=== PATIENT | female | born 1940 | race African-American/Black ===

== ENCOUNTER 2019-05-23 18:05 | Inpatient (IN) ==
[2019-05-23 20:02] LABS: Basophils % 0.3 % (0.0-0.8); Eosinophils # 0.1 10*3/uL (0.0-0.87); Eosinophils % 1.3 % (0.00-10.9); Hematocrit 26.3 VOL% (35.7-47.0); Hemoglobin 7.7 GM/DL (12.0-16.0); Immature Granulocytes % 0.4 %; Immature Granulocytes Absolute 0.03 #; Lymphocytes # 2.4 10*3/uL (1.4-4.0); Lymphocytes % 35.6 % (21.3-54.2); Mean Corpuscular HGB Conc 29.3 GM/DL (32-36); Mean Corpuscular Volume 95.6 FL (87-102); Mean Platelet Volume 11.4 FL (9.6-12.0); Monocytes % 10.4 % (1.7-12.7); Platelet Count 197 T/CUMM (130-400); Red Blood Count 2.75 MC/CUMM (3.8-5.5); Red Cell Distribution Width 14.8 % (9.3-17.3); White Blood Count 6.8 T/CUMM (4-12)
[2019-05-23 20:14] LABS: PT Patient Result 22.1 SECS
[2019-05-23 20:21] LABS: Albumin 3.3 G/DL (3.4-5.0); Bilirubin,Total 0.4 MG/DL (0.2-1.0); Calcium 8.7 MG/DL (8.5-10.1); Osmolality,Calculated 301.3 MOS/KG (273-304)
[2019-05-24] MEDS ORDERED: PANTOPRAZOLE INJ 80 MG in SODIUM CHLORIDE 0.9% 100 ML IV ONE (00:05)
[2019-05-24] MEDS ORDERED: MORPHINE 4 MG/1 ML VIAL IV PRN (00:34)
[2019-05-24] MEDS ORDERED: NICOTINE 21 MG/24 HR PATCH TRANSDERM PRN (00:34)
[2019-05-24] MEDS ORDERED: ONDANSETRON 4 MG/2 ML VIAL IV PRN (00:34)
[2019-05-24] MEDS: PANTOPRAZOLE INJ 200 MG in SODIUM CHLORIDE 0.9% 250 ML IV SCH ×2 (02:02→04:59)
[2019-05-24] MEDS: SODIUM CHLORIDE 0.9% 1,000 ML IV SCH ×3 (02:02→14:19)
[2019-05-24] MEDS ORDERED: PHYTONADIONE INJ 5 MG in SODIUM CHLORIDE 0.9% 50 ML IV ONE (02:23)
[2019-05-24] MEDS ORDERED: SODIUM CHLORIDE 0.9% 1,000 ML IV PRN (03:57)
[2019-05-24 05:26] LABS: Basophils % 0.3 % (0.0-0.8); Eosinophils # 0.1 10*3/uL (0.0-0.87); Eosinophils % 1.2 % (0.00-10.9); Hematocrit 24.4 VOL% (35.7-47.0); Hemoglobin 7.3 GM/DL (12.0-16.0); Immature Granulocytes % 0.5 %; Immature Granulocytes Absolute 0.03 #; Lymphocytes # 1.8 10*3/uL (1.4-4.0); Lymphocytes % 30.8 % (21.3-54.2); Mean Corpuscular HGB Conc 29.9 GM/DL (32-36); Mean Corpuscular Volume 96.1 FL (87-102); Mean Platelet Volume 12.1 FL (9.6-12.0); Monocytes % 10.2 % (1.7-12.7); Platelet Count 190 T/CUMM (130-400); Red Blood Count 2.54 MC/CUMM (3.8-5.5); Red Cell Distribution Width 14.8 % (9.3-17.3)
[2019-05-24 10:35] LABS: Apearance,Urine CLEAR (Clear); Bacteria,Urine Occasional /HPF (Few); Bilirubin,Urine Negative (Negative); Blood, Urine Negative (Negative); Glucose,Urine (UA) 150 mg/dL (Negative); Ketones,Urine Negative (Negative); Mucus,Urine Occasional /LPF (Occasional); Nitrite,Urine Negative (Negative); Protein,Urine Negative; RBC,Urine 1 /HPF (0-4); Squamous Epithelial Cell,Urine Occasional /HPF (0-10); Transitional Epi Cells,Urine Occasional /HPF (<1); Urine Color Straw (Yellow); Urine Specific Gravity 1.012 (1.001-1.035); Urine Urobilinogen < 2.0 EU/DL (0.2-1.0); WBC,Urine 21 /HPF (0-6)
[2019-05-24] MEDS ORDERED: DEXTROSE 50% 25 GM/50 ML VIAL IV PRN (11:52)
[2019-05-24] MEDS ORDERED: GLUCAGON 1 MG VIAL IM PRN (11:52)
[2019-05-24] MEDS ORDERED: DEXTROSE 10% 250 ML IV PRN (12:11)
[2019-05-24] MEDS: INSULIN REGULAR 100 UNIT/ML SUBCUT SCH ×2 (13:20→18:10)
[2019-05-24 14:54] LABS: Hematocrit 29.7 VOL% (35.7-47.0)
[2019-05-24 14:55] LABS: Hemoglobin 9.1 GM/DL (12.0-16.0)
[2019-05-24] MEDS ORDERED: cloNIDine 0.1 MG TABLET PO PRN (18:03)
[2019-05-24] MEDS ORDERED: hydrALAZINE 20 MG/1 ML VIAL IV PRN (18:04)
[2019-05-24] MEDS: ATORVASTATIN 10 MG TABLET PO SCH (22:08)
[2019-05-25] MEDS: INSULIN REGULAR 100 UNIT/ML SUBCUT SCH ×4 (00:04→18:32)
[2019-05-25 06:49] LABS: Bilirubin,Total 0.9 MG/DL (0.2-1.0); Calcium 8.8 MG/DL (8.5-10.1); Osmolality,Calculated 294.4 MOS/KG (273-304); Total Protein 7.7 G/DL (6.4-8.3)
[2019-05-25] MEDS ORDERED: LACTATED RINGERS 1,000 ML IV SCH (08:00)
[2019-05-25 08:11] LABS: INR 1.1
[2019-05-25] MEDS ORDERED: PROPOFOL 200 MG/20 ML VIAL IV ONE (09:00)
[2019-05-25] MEDS ORDERED: LIDOCAINE 2% 5 ML VIAL ONE (09:00)
[2019-05-25 09:08] LABS: Basophils % 0.4 % (0.0-0.8); Eosinophils # 0.1 10*3/uL (0.0-0.87); Eosinophils % 1.1 % (0.00-10.9); Hemoglobin 9.7 GM/DL (12.0-16.0); Immature Granulocytes % 0.3 %; Immature Granulocytes Absolute 0.02 #; Lymphocytes # 1.7 10*3/uL (1.4-4.0); Lymphocytes % 22.9 % (21.3-54.2); Mean Corpuscular HGB Conc 30.3 GM/DL (32-36); Mean Corpuscular Volume 93.6 FL (87-102); Mean Platelet Volume 11.7 FL (9.6-12.0); Monocytes % 8.4 % (1.7-12.7); Neutrophils % 66.9 % (38.7-73.9); Platelet Count 209 T/CUMM (130-400); Red Blood Count 3.42 MC/CUMM (3.8-5.5); Red Cell Distribution Width 15.6 % (9.3-17.3); White Blood Count 7.4 T/CUMM (4-12)
[2019-05-25] MEDS: SODIUM CHLORIDE 0.9% 1,000 ML IV SCH ×2 (09:09→17:47)
[2019-05-25 09:14] LABS: INR 1.1; PT Patient Result 12.4 SECS
[2019-05-25] MEDS: cefTRIAXone 1,000 MG in SYRINGE 1 EACH IV SCH (09:36)
[2019-05-25] MEDS: CARVEDILOL 3.125 MG TABLET PO SCH ×2 (14:15→17:45)
[2019-05-25] MEDS: PANTOPRAZOLE 40 MG TABLET PO SCH (14:28)
[2019-05-25] MEDS: FERROUS SULFATE 325 MG TABLET PO SCH (14:28)
[2019-05-25] MEDS: PANTOPRAZOLE INJ 200 MG in SODIUM CHLORIDE 0.9% 250 ML IV SCH (14:37)
[2019-05-25] MEDS ORDERED: BISACODYL 5 MG TABLET PO ONE (16:00)
[2019-05-25] MEDS ORDERED: POLYETHYLENE GLYCOL POWDER 255 GM BOTTLE PO ONE (18:00)
[2019-05-25] MEDS: ATORVASTATIN 10 MG TABLET PO SCH (21:40)
[2019-05-26] MEDS: INSULIN REGULAR 100 UNIT/ML SUBCUT SCH ×4 (00:30→18:55)
[2019-05-26 04:56] LABS: Basophils % 0.3 % (0.0-0.8); Eosinophils # 0.1 10*3/uL (0.0-0.87); Eosinophils % 1.6 % (0.00-10.9); Hematocrit 28.7 VOL% (35.7-47.0); Hemoglobin 8.5 GM/DL (12.0-16.0); Immature Granulocytes % 0.4 %; Immature Granulocytes Absolute 0.03 #; Lymphocytes % 26.9 % (21.3-54.2); Mean Corpuscular HGB Conc 29.6 GM/DL (32-36); Mean Corpuscular Volume 95.3 FL (87-102); Mean Platelet Volume 11.5 FL (9.6-12.0); Neutrophils % 59.8 % (38.7-73.9); Platelet Count 183 T/CUMM (130-400); Red Blood Count 3.01 MC/CUMM (3.8-5.5); Red Cell Distribution Width 15.6 % (9.3-17.3); White Blood Count 7.3 T/CUMM (4-12)
[2019-05-26] MEDS: SODIUM CHLORIDE 0.9% 1,000 ML IV SCH ×2 (05:19→18:38)
[2019-05-26 05:22] LABS: Bilirubin,Total 0.7 MG/DL (0.2-1.0); Calcium 8.7 MG/DL (8.5-10.1); Osmolality,Calculated 296.4 MOS/KG (273-304); Total Protein 7.1 G/DL (6.4-8.3)
[2019-05-26 05:48] LABS: Risk Ratio 2.18; VLDL CHOLESTEROL 17.6 MG/DL
[2019-05-26] MEDS ORDERED: MAGNESIUM CITRATE 300 ML BOTTLE PO ONE ×2 (06:00→18:00)
[2019-05-26] MEDS ORDERED: LIDOCAINE 2% 5 ML VIAL ONE (08:00)
[2019-05-26] MEDS ORDERED: PROPOFOL 200 MG/20 ML VIAL IV ONE (08:00)
[2019-05-26] MEDS ORDERED: NON-FORMULARY MEDICATION (Omeprazole 40 MG) PO SCH (09:00)
[2019-05-26] MEDS ORDERED: NON-FORMULARY MEDICATION (Linagliptin [Tradjenta] 5 MG) PO SCH (09:00)
[2019-05-26] MEDS: cefTRIAXone 1,000 MG in SYRINGE 1 EACH IV SCH (09:36)
[2019-05-26] MEDS: CARVEDILOL 3.125 MG TABLET PO SCH ×2 (14:30→17:42)
[2019-05-26] MEDS: MONTELUKAST 10 MG TABLET PO SCH (14:30)
[2019-05-26] MEDS: CHOLECALCIFEROL 1,000 UNIT TABLET PO SCH (14:30)
[2019-05-26] MEDS: OLMESARTAN 20 MG TABLET PO SCH (14:30)
[2019-05-26] MEDS: FERROUS SULFATE 325 MG TABLET PO SCH (14:30)
[2019-05-26] MEDS: PIOGLITAZONE 15 MG TABLET PO SCH (14:30)
[2019-05-26] MEDS: PANTOPRAZOLE 40 MG TABLET PO SCH (14:30)
[2019-05-26] MEDS: FUROSEMIDE 40 MG TABLET PO SCH ×2 (14:30→17:42)
[2019-05-26] MEDS: SODIUM BICARBONATE 650 MG TABLET PO SCH ×2 (14:30→20:57)
[2019-05-26] MEDS ORDERED: FUROSEMIDE 20 MG/2 ML VIAL ONE (14:35)
[2019-05-26 19:50] LABS: Apearance,Urine Slightly Hazy (Clear); Bacteria,Urine Occasional /HPF (Few); Bilirubin,Urine Negative (Negative); Blood, Urine Negative (Negative); Glucose,Urine (UA) Negative (Negative); Ketones,Urine 5 mg/dL (Negative); Mucus,Urine Occasional /LPF (Occasional); Nitrite,Urine Negative (Negative); Protein,Urine 30 MG/DL; Urine Color Yellow (Yellow); Urine Specific Gravity 1.016 (1.001-1.035); Urine Urobilinogen < 2.0 EU/DL (0.2-1.0); WBC,Urine 2 /HPF (0-6)
[2019-05-26] MEDS: ATORVASTATIN 10 MG TABLET PO SCH (20:57)
[2019-05-26] MEDS: DOXAZOSIN 4 MG TABLET PO SCH (20:58)
[2019-05-26] MEDS ORDERED: INSULIN DETEMIR 100 UNIT/ML SUBCUT SCH (21:00)
[2019-05-27] MEDS: INSULIN REGULAR 100 UNIT/ML SUBCUT SCH ×5 (01:31→23:15)
[2019-05-27] MEDS: SODIUM CHLORIDE 0.9% 1,000 ML IV SCH (01:31)
[2019-05-27 04:46] LABS: Basophils % 0.3 % (0.0-0.8); Eosinophils # 0.1 10*3/uL (0.0-0.87); Eosinophils % 1.7 % (0.00-10.9); Hematocrit 29.9 VOL% (35.7-47.0); Hemoglobin 8.9 GM/DL (12.0-16.0); Immature Granulocytes % 0.4 %; Immature Granulocytes Absolute 0.03 #; Lymphocytes # 1.5 10*3/uL (1.4-4.0); Lymphocytes % 22.4 % (21.3-54.2); Mean Corpuscular HGB Conc 29.8 GM/DL (32-36); Mean Corpuscular Volume 96.1 FL (87-102); Mean Platelet Volume 12.7 FL (9.6-12.0); Monocytes % 8.9 % (1.7-12.7); Neutrophils % 66.3 % (38.7-73.9); Platelet Count 165 T/CUMM (130-400); Red Blood Count 3.11 MC/CUMM (3.8-5.5); Red Cell Distribution Width 15.5 % (9.3-17.3); White Blood Count 6.9 T/CUMM (4-12)
[2019-05-27 05:18] LABS: Albumin 2.9 G/DL (3.4-5.0); Bilirubin,Total 1.2 MG/DL (0.2-1.0); Calcium 8.7 MG/DL (8.5-10.1); Osmolality,Calculated 294.8 MOS/KG (273-304); Total Protein 7.2 G/DL (6.4-8.3)
[2019-05-27] MEDS: CARVEDILOL 3.125 MG TABLET PO SCH ×2 (09:29→17:34)
[2019-05-27] MEDS: FUROSEMIDE 40 MG TABLET PO SCH ×2 (09:29→17:34)
[2019-05-27] MEDS: cefTRIAXone 1,000 MG in SYRINGE 1 EACH IV SCH (09:31)
[2019-05-27] MEDS: OLMESARTAN 20 MG TABLET PO SCH (09:34)
[2019-05-27] MEDS: PIOGLITAZONE 15 MG TABLET PO SCH (09:34)
[2019-05-27] MEDS: FERROUS SULFATE 325 MG TABLET PO SCH (09:34)
[2019-05-27] MEDS: PANTOPRAZOLE 40 MG TABLET PO SCH (09:35)
[2019-05-27] MEDS: CHOLECALCIFEROL 1,000 UNIT TABLET PO SCH (09:35)
[2019-05-27] MEDS: SODIUM BICARBONATE 650 MG TABLET PO SCH ×2 (09:35→21:16)
[2019-05-27] MEDS: MONTELUKAST 10 MG TABLET PO SCH (09:35)
[2019-05-27] MEDS ORDERED: SODIUM CHLORIDE 0.9% 1,000 ML IV PRN (11:09)
[2019-05-27] MEDS: ENOXAPARIN 40 MG/0.4 ML SYRINGE SUBCUT SCH (13:53)
[2019-05-27] MEDS: DOXAZOSIN 4 MG TABLET PO SCH (21:16)
[2019-05-27] MEDS: ATORVASTATIN 10 MG TABLET PO SCH (21:17)
[2019-05-27] MEDS: cloNIDine 0.1 MG TABLET PO SCH (21:17)
[2019-05-28] MEDS: INSULIN REGULAR 100 UNIT/ML SUBCUT SCH ×3 (05:21→17:57)
[2019-05-28] MEDS: SODIUM CHLORIDE 0.9% 1,000 ML IV SCH ×2 (05:23→16:10)
[2019-05-28 05:28] LABS: Basophils % 0.5 % (0.0-0.8); Eosinophils # 0.1 10*3/uL (0.0-0.87); Eosinophils % 2.1 % (0.00-10.9); Hematocrit 30.9 VOL% (35.7-47.0); Hemoglobin 9.3 GM/DL (12.0-16.0); Immature Granulocytes % 0.5 %; Immature Granulocytes Absolute 0.03 #; Lymphocytes # 2.1 10*3/uL (1.4-4.0); Lymphocytes % 33.8 % (21.3-54.2); Mean Corpuscular HGB Conc 30.1 GM/DL (32-36); Mean Corpuscular Volume 95.1 FL (87-102); Mean Platelet Volume 11.3 FL (9.6-12.0); Monocytes % 10.2 % (1.7-12.7); Neutrophils % 52.9 % (38.7-73.9); Platelet Count 199 T/CUMM (130-400); Red Blood Count 3.25 MC/CUMM (3.8-5.5); White Blood Count 6.1 T/CUMM (4-12)
[2019-05-28 06:00] LABS: Bilirubin,Total 0.8 MG/DL (0.2-1.0); Calcium 8.9 MG/DL (8.5-10.1); Total Protein 7.6 G/DL (6.4-8.3)
[2019-05-28] MEDS: cefTRIAXone 1,000 MG in SYRINGE 1 EACH IV SCH (08:01)
[2019-05-28] MEDS: FERROUS SULFATE 325 MG TABLET PO SCH (08:01)
[2019-05-28] MEDS: PIOGLITAZONE 15 MG TABLET PO SCH (08:02)
[2019-05-28] MEDS: PANTOPRAZOLE 40 MG TABLET PO SCH (08:02)
[2019-05-28] MEDS: CHOLECALCIFEROL 1,000 UNIT TABLET PO SCH (08:02)
[2019-05-28] MEDS: SODIUM BICARBONATE 650 MG TABLET PO SCH ×2 (08:02→20:38)
[2019-05-28] MEDS: OLMESARTAN 20 MG TABLET PO SCH (08:02)
[2019-05-28] MEDS: FUROSEMIDE 40 MG TABLET PO SCH ×2 (08:02→16:18)
[2019-05-28] MEDS: MONTELUKAST 10 MG TABLET PO SCH (08:02)
[2019-05-28] MEDS: cloNIDine 0.1 MG TABLET PO SCH ×2 (08:02→20:38)
[2019-05-28] MEDS: CARVEDILOL 3.125 MG TABLET PO SCH ×2 (08:03→16:18)
[2019-05-28] MEDS: ENOXAPARIN 40 MG/0.4 ML SYRINGE SUBCUT SCH (11:53)
[2019-05-28] MEDS: DOXAZOSIN 4 MG TABLET PO SCH (20:38)
[2019-05-28] MEDS: ATORVASTATIN 10 MG TABLET PO SCH (20:38)
[2019-05-29] MEDS: INSULIN REGULAR 100 UNIT/ML SUBCUT SCH ×4 (00:50→17:00)
[2019-05-29 06:11] LABS: Basophils % 0.2 % (0.0-0.8); Eosinophils # 0.1 10*3/uL (0.0-0.87); Eosinophils % 2.2 % (0.00-10.9); Hematocrit 28.3 VOL% (35.7-47.0); Hemoglobin 8.6 GM/DL (12.0-16.0); Immature Granulocytes % 0.4 %; Immature Granulocytes Absolute 0.02 #; Lymphocytes # 1.7 10*3/uL (1.4-4.0); Mean Corpuscular HGB Conc 30.4 GM/DL (32-36); Mean Corpuscular Volume 94.3 FL (87-102); Monocytes % 11.9 % (1.7-12.7); Neutrophils % 52.3 % (38.7-73.9); Platelet Count 175 T/CUMM (130-400); Red Cell Distribution Width 14.9 % (9.3-17.3)
[2019-05-29 06:45] LABS: Albumin 2.8 G/DL (3.4-5.0); Bilirubin,Total 0.7 MG/DL (0.2-1.0); Calcium 8.5 MG/DL (8.5-10.1); Osmolality,Calculated 295.8 MOS/KG (273-304); Total Protein 6.8 G/DL (6.4-8.3)
[2019-05-29] MEDS: SODIUM CHLORIDE 0.9% 1,000 ML IV SCH ×2 (06:49→10:53)
[2019-05-29] MEDS: MONTELUKAST 10 MG TABLET PO SCH (08:02)
[2019-05-29] MEDS: cloNIDine 0.1 MG TABLET PO SCH ×2 (08:02→20:57)
[2019-05-29] MEDS: PANTOPRAZOLE 40 MG TABLET PO SCH (08:02)
[2019-05-29] MEDS: OLMESARTAN 20 MG TABLET PO SCH (08:02)
[2019-05-29] MEDS: FERROUS SULFATE 325 MG TABLET PO SCH (08:02)
[2019-05-29] MEDS: FUROSEMIDE 40 MG TABLET PO SCH ×2 (08:03→15:23)
[2019-05-29] MEDS: SODIUM BICARBONATE 650 MG TABLET PO SCH ×2 (08:03→20:57)
[2019-05-29] MEDS: PIOGLITAZONE 15 MG TABLET PO SCH (08:03)
[2019-05-29] MEDS: CHOLECALCIFEROL 1,000 UNIT TABLET PO SCH (08:03)
[2019-05-29] MEDS: cefTRIAXone 1,000 MG in SYRINGE 1 EACH IV SCH (08:04)
[2019-05-29] MEDS: CARVEDILOL 3.125 MG TABLET PO SCH ×2 (08:04→17:00)
[2019-05-29 18:50] LABS: Hematocrit 34.1 VOL% (35.7-47.0)
[2019-05-29 18:51] LABS: Hemoglobin 10.6 GM/DL (12.0-16.0)
[2019-05-29] MEDS: DOXAZOSIN 4 MG TABLET PO SCH (20:57)
[2019-05-29] MEDS: ATORVASTATIN 10 MG TABLET PO SCH (20:57)
[2019-05-30] MEDS: INSULIN REGULAR 100 UNIT/ML SUBCUT SCH ×4 (01:04→17:56)
[2019-05-30] MEDS ORDERED: cefTRIAXone 1,000 MG in SYRINGE 1 EACH IV ONE (06:00)
[2019-05-30 07:06] LABS: Basophils % 0.4 % (0.0-0.8); Eosinophils # 0.1 10*3/uL (0.0-0.87); Eosinophils % 1.8 % (0.00-10.9); Hematocrit 38.5 VOL% (35.7-47.0); Hemoglobin 11.9 GM/DL (12.0-16.0); Immature Granulocytes % 0.4 %; Immature Granulocytes Absolute 0.02 #; Lymphocytes # 1.8 10*3/uL (1.4-4.0); Lymphocytes % 32.7 % (21.3-54.2); Mean Corpuscular HGB Conc 30.9 GM/DL (32-36); Mean Corpuscular Volume 92.5 FL (87-102); Mean Platelet Volume 12.4 FL (9.6-12.0); Neutrophils % 54.7 % (38.7-73.9); Platelet Count 188 T/CUMM (130-400); Red Blood Count 4.16 MC/CUMM (3.8-5.5); White Blood Count 5.6 T/CUMM (4-12)
[2019-05-30 07:36] LABS: Albumin 3.2 G/DL (3.4-5.0); Bilirubin,Total 0.6 MG/DL (0.2-1.0); Calcium 9.6 MG/DL (8.5-10.1); Total Protein 8.1 G/DL (6.4-8.3)
[2019-05-30] MEDS: SODIUM CHLORIDE 0.9% 1,000 ML IV SCH ×2 (08:29→22:10)
[2019-05-30] MEDS: cloNIDine 0.1 MG TABLET PO SCH ×2 (09:08→21:42)
[2019-05-30] MEDS: OLMESARTAN 20 MG TABLET PO SCH (09:08)
[2019-05-30] MEDS: cefTRIAXone 1,000 MG in SYRINGE 1 EACH IV SCH (09:09)
[2019-05-30] MEDS: FERROUS SULFATE 325 MG TABLET PO SCH (09:10)
[2019-05-30] MEDS: PANTOPRAZOLE 40 MG TABLET PO SCH (09:10)
[2019-05-30] MEDS: CARVEDILOL 3.125 MG TABLET PO SCH ×2 (09:10→18:00)
[2019-05-30] MEDS: FUROSEMIDE 40 MG TABLET PO SCH ×2 (09:10→18:00)
[2019-05-30] MEDS: PIOGLITAZONE 15 MG TABLET PO SCH (09:10)
[2019-05-30] MEDS: MONTELUKAST 10 MG TABLET PO SCH (09:11)
[2019-05-30] MEDS: CHOLECALCIFEROL 1,000 UNIT TABLET PO SCH (09:11)
[2019-05-30] MEDS: SODIUM BICARBONATE 650 MG TABLET PO SCH ×2 (09:11→21:41)
[2019-05-30 14:00] LABS: INR 1.2; PT Patient Result 13.5 SECS (9.6-12.2)
[2019-05-30] MEDS ORDERED: fentaNYL 100 MCG/2 ML VIAL ONE (15:12)
[2019-05-30] MEDS ORDERED: ePHEDrine 50 MG/ML AMP ONE (15:13)
[2019-05-30] MEDS ORDERED: ONDANSETRON 4 MG/2 ML VIAL ONE (15:27)
[2019-05-30] MEDS ORDERED: GLYCOPYRROLATE 0.4 MG/2 ML VIAL ONE (15:27)
[2019-05-30] MEDS ORDERED: PROPOFOL 200 MG/20 ML VIAL IV ONE (15:27)
[2019-05-30] MEDS ORDERED: SEVOFLURANE 1 UNIT/15 MINUTE INH ONE (15:28)
[2019-05-30] MEDS: DOXAZOSIN 4 MG TABLET PO SCH (21:41)
[2019-05-30] MEDS: ATORVASTATIN 10 MG TABLET PO SCH (21:42)
[2019-05-31] MEDS: INSULIN REGULAR 100 UNIT/ML SUBCUT SCH ×4 (00:02→18:19)
[2019-05-31 06:39] LABS: Albumin 2.9 G/DL (3.4-5.0); Bilirubin,Total 0.7 MG/DL (0.2-1.0); Calcium 8.9 MG/DL (8.5-10.1); Total Protein 7.2 G/DL (6.4-8.3)
[2019-05-31 06:52] LABS: Basophils % 0.4 % (0.0-0.8); Eosinophils # 0.1 10*3/uL (0.0-0.87); Eosinophils % 1.6 % (0.00-10.9); Hematocrit 36.2 VOL% (35.7-47.0); Immature Granulocytes % 0.4 %; Immature Granulocytes Absolute 0.02 #; Lymphocytes # 1.5 10*3/uL (1.4-4.0); Lymphocytes % 25.7 % (21.3-54.2); Mean Corpuscular HGB Conc 30.1 GM/DL (32-36); Mean Corpuscular Volume 93.8 FL (87-102); Mean Platelet Volume 12.1 FL (9.6-12.0); Neutrophils % 60.9 % (38.7-73.9); Platelet Count 175 T/CUMM (130-400); Red Blood Count 3.86 MC/CUMM (3.8-5.5); Red Cell Distribution Width 14.9 % (9.3-17.3); White Blood Count 5.7 T/CUMM (4-12)
[2019-05-31 06:53] LABS: Hemoglobin 10.9 GM/DL (12.0-16.0)
[2019-05-31] MEDS: CHOLECALCIFEROL 1,000 UNIT TABLET PO SCH (08:56)
[2019-05-31] MEDS: SODIUM BICARBONATE 650 MG TABLET PO SCH ×2 (08:56→20:59)
[2019-05-31] MEDS: cloNIDine 0.1 MG TABLET PO SCH ×2 (08:56→20:59)
[2019-05-31] MEDS: OLMESARTAN 20 MG TABLET PO SCH (08:56)
[2019-05-31] MEDS: FERROUS SULFATE 325 MG TABLET PO SCH (08:56)
[2019-05-31] MEDS: FUROSEMIDE 40 MG TABLET PO SCH ×2 (08:56→16:20)
[2019-05-31] MEDS: PIOGLITAZONE 15 MG TABLET PO SCH (08:56)
[2019-05-31] MEDS: MONTELUKAST 10 MG TABLET PO SCH (08:56)
[2019-05-31] MEDS: PANTOPRAZOLE 40 MG TABLET PO SCH (08:56)
[2019-05-31] MEDS: CARVEDILOL 3.125 MG TABLET PO SCH ×2 (08:56→16:20)
[2019-05-31] MEDS: cefTRIAXone 1,000 MG in SYRINGE 1 EACH IV SCH (08:57)
[2019-05-31] MEDS ORDERED: PHENOL 1.4% THROAT SPRAY 177 ML BOTTLE PO PRN (10:41)
[2019-05-31] MEDS: SODIUM CHLORIDE 0.9% 1,000 ML IV SCH (16:28)
[2019-05-31] MEDS: DOXAZOSIN 4 MG TABLET PO SCH (20:59)
[2019-06-01] MEDS: INSULIN REGULAR 100 UNIT/ML SUBCUT SCH ×3 (00:53→12:52)
[2019-06-01] MEDS: SODIUM CHLORIDE 0.9% 1,000 ML IV SCH (05:44)
[2019-06-01] MEDS: PANTOPRAZOLE 40 MG TABLET PO SCH (08:59)
[2019-06-01] MEDS: cefTRIAXone 1,000 MG in SYRINGE 1 EACH IV SCH (08:59)
[2019-06-01] MEDS: CARVEDILOL 3.125 MG TABLET PO SCH (09:00)
[2019-06-01] MEDS: FUROSEMIDE 40 MG TABLET PO SCH (09:00)
[2019-06-01] MEDS: CHOLECALCIFEROL 1,000 UNIT TABLET PO SCH (09:00)
[2019-06-01] MEDS: MONTELUKAST 10 MG TABLET PO SCH (09:00)
[2019-06-01] MEDS: OLMESARTAN 20 MG TABLET PO SCH (09:00)
[2019-06-01] MEDS: PIOGLITAZONE 15 MG TABLET PO SCH (09:00)
[2019-06-01] MEDS: SODIUM BICARBONATE 650 MG TABLET PO SCH (09:00)
[2019-06-01] MEDS: FERROUS SULFATE 325 MG TABLET PO SCH (09:00)
[2019-06-01] MEDS: cloNIDine 0.1 MG TABLET PO SCH (09:01)
[2019-06-01 11:51] LABS: Protein C Activity Plasma 76 % (70 - 150)
[2019-06-01 12:33] VITALS: BP 152/58
[2019-06-02 14:27] LABS: Protein S Activity Plasma 83 % (65 - 160)
[2019-06-02 16:51] LABS: F5DNA Reviewed By SEE COMMENTS; Factor V Leiden (R506Q) Mutati Negative (Negative); PTNT Reviewed By SEE COMMENTS
[2019-06-03 13:11] LABS: DRVVT Screen Ratio 0.9 ratio (0.0 - 1.1); INR 1.4
[2019-06-08 14:45] LABS: PT Mix 1:1 (Mayo Reflex) 12.4 sec; Thrombin Time (Bovine), P 22 sec (15 - 23)
== END 2019-06-01 14:34 | disposition home or self-care (01) | DRG 813 ==
LOC: N.ED 18:05 → N.EDINP 18:05 → N.5E 05-24 01:23 → SUATTDRO 05-24 13:47
PROVIDERS: ADMIT Family Medicine; ATTEND Internal Medicine

== ENCOUNTER 2020-03-25 01:10 | Inpatient (IN) ==
[2020-03-25] MEDS ORDERED: ONDANSETRON 4 MG/2 ML VIAL IV PRN (04:10)
[2020-03-25] MEDS ORDERED: GLUCAGON 1 MG VIAL IM PRN (04:10)
[2020-03-25] MEDS ORDERED: MORPHINE 4 MG/1 ML VIAL IV PRN (04:10)
[2020-03-25] MEDS ORDERED: ALBUTEROL/IPRATROPIUM 3 ML NEB RESP TX PRN (04:10)
[2020-03-25] MEDS ORDERED: ACETAMINOPHEN 325 MG TABLET PO PRN (04:10)
[2020-03-25] MEDS ORDERED: DEXTROSE 10% 250 ML BAG IV PRN (04:10)
[2020-03-25] MEDS ORDERED: hydrALAZINE 20 MG/1 ML VIAL IV PRN (04:16)
[2020-03-25] MEDS ORDERED: ALBUTEROL 2.5 MG/3 ML NEB RESP TX PRN (04:20)
[2020-03-25 04:38] LABS: Basophils % 0.5 % (0.0-0.8); Eosinophils # 0.2 10*3/uL (0.0-0.87); Eosinophils % 2.3 % (0.00-10.9); Hematocrit 30.7 VOL% (35.7-47.0); Hemoglobin 9.1 GM/DL (12.0-16.0); Immature Granulocytes % 0.4 %; Immature Granulocytes Absolute 0.03 #; Lymphocytes # 2.3 10*3/uL (1.4-4.0); Lymphocytes % 28.4 % (21.3-54.2); Mean Corpuscular HGB Conc 29.6 GM/DL (32-36); Mean Corpuscular Volume 95.6 FL (87-102); Mean Platelet Volume 11.9 FL (9.6-12.0); Neutrophils % 58.4 % (38.7-73.9); Platelet Count 243 T/CUMM (130-400); Red Blood Count 3.21 MC/CUMM (3.8-5.5); Red Cell Distribution Width 14.4 % (9.3-17.3); White Blood Count 7.9 T/CUMM (4-12)
[2020-03-25 05:02] LABS: Albumin 3.5 G/DL (3.4-5.0); Bilirubin,Total 0.8 MG/DL (0.2-1.0); Calcium 9.1 MG/DL (8.5-10.1); Risk Ratio 2.57; Thyroid Stimulating Hormone 2.63 uIU/ml (0.358-3.74)
[2020-03-25] MEDS ORDERED: NITROGLYCERIN SL 0.4 MG TABLET SL PRN (05:04)
[2020-03-25] MEDS ORDERED: INSULIN LISPRO 100 UNIT/ML SUBCUT SCH (07:30)
[2020-03-25] MEDS: sitaGLIPtin 25 MG TABLET PO SCH (08:29)
[2020-03-25] MEDS: DOCUSATE SODIUM 100 MG CAPSULE PO PRN (08:29)
[2020-03-25] MEDS: CHOLECALCIFEROL 1,000 UNIT TABLET PO SCH (08:29)
[2020-03-25] MEDS: APIXABAN 5 MG TABLET PO SCH ×2 (08:30→21:13)
[2020-03-25] MEDS: DOXAZOSIN 4 MG TABLET PO SCH (08:30)
[2020-03-25] MEDS: OLMESARTAN 20 MG TABLET PO SCH (08:30)
[2020-03-25] MEDS: FERROUS SULFATE 325 MG TABLET PO SCH (08:30)
[2020-03-25] MEDS: MONTELUKAST 10 MG TABLET PO SCH (08:31)
[2020-03-25] MEDS: INSULIN LISPRO 100 UNIT/ML SUBCUT SCH ×4 (08:31→21:12)
[2020-03-25] MEDS: SODIUM BICARBONATE 650 MG TABLET PO SCH ×2 (08:31→21:12)
[2020-03-25] MEDS: PANTOPRAZOLE 40 MG TABLET PO SCH (08:31)
[2020-03-25] MEDS: FUROSEMIDE 40 MG/4 ML VIAL IV SCH ×2 (08:32→16:42)
[2020-03-25] MEDS: Fluticasone Furoate-Vilanterol [Breo Ellipta] INH SCH (08:36)
[2020-03-25] MEDS ORDERED: POTASSIUM CHLORIDE 20 MEQ TABLET PO ONE (08:44)
[2020-03-25] MEDS: ASCORBIC ACID 500 MG TABLET PO SCH ×2 (09:14→21:12)
[2020-03-25] MEDS: carvediloL 3.125 MG TABLET PO SCH ×2 (09:14→21:13)
[2020-03-25] MEDS: amLODIPine 5 MG TABLET PO SCH (09:14)
[2020-03-25] MEDS: INSULIN GLARGINE 100 UNIT/ML SUBCUT SCH (21:11)
[2020-03-25] MEDS: ATORVASTATIN 10 MG TABLET PO SCH (21:12)
[2020-03-26 05:40] LABS: Basophils % 0.7 % (0.0-0.8); Eosinophils # 0.3 10*3/uL (0.0-0.87); Eosinophils % 4.3 % (0.00-10.9); Hematocrit 28.8 VOL% (35.7-47.0); Hemoglobin 8.5 GM/DL (12.0-16.0); Immature Granulocytes % 0.2 %; Immature Granulocytes Absolute 0.01 #; Lymphocytes # 2.2 10*3/uL (1.4-4.0); Lymphocytes % 36.6 % (21.3-54.2); Mean Corpuscular HGB Conc 29.5 GM/DL (32-36); Mean Platelet Volume 11.5 FL (9.6-12.0); Monocytes % 12.6 % (1.7-12.7); Neutrophils % 45.6 % (38.7-73.9); Platelet Count 195 T/CUMM (130-400); Red Cell Distribution Width 14.6 % (9.3-17.3); White Blood Count 5.9 T/CUMM (4-12)
[2020-03-26 06:02] LABS: Calcium 9.3 MG/DL (8.5-10.1); Osmolality,Calculated 283.5 MOS/KG (273-304)
[2020-03-26 06:04] LABS: Calcium 9.3 MG/DL (8.5-10.1); Osmolality,Calculated 282.5 MOS/KG (273-304)
[2020-03-26] MEDS: INSULIN LISPRO 100 UNIT/ML SUBCUT SCH ×4 (08:59→20:45)
[2020-03-26] MEDS: SODIUM BICARBONATE 650 MG TABLET PO SCH ×2 (09:39→20:37)
[2020-03-26] MEDS: DOXAZOSIN 4 MG TABLET PO SCH (09:39)
[2020-03-26] MEDS: MONTELUKAST 10 MG TABLET PO SCH (09:40)
[2020-03-26] MEDS: CHOLECALCIFEROL 1,000 UNIT TABLET PO SCH (09:40)
[2020-03-26] MEDS: ASCORBIC ACID 500 MG TABLET PO SCH ×2 (09:40→20:37)
[2020-03-26] MEDS: sitaGLIPtin 25 MG TABLET PO SCH (09:40)
[2020-03-26] MEDS: APIXABAN 5 MG TABLET PO SCH ×2 (09:41→20:37)
[2020-03-26] MEDS: OLMESARTAN 20 MG TABLET PO SCH ×2 (09:41→20:37)
[2020-03-26] MEDS: DOCUSATE SODIUM 100 MG CAPSULE PO PRN ×2 (09:41→20:37)
[2020-03-26] MEDS: FERROUS SULFATE 325 MG TABLET PO SCH (09:41)
[2020-03-26] MEDS: amLODIPine 5 MG TABLET PO SCH (09:41)
[2020-03-26] MEDS: PANTOPRAZOLE 40 MG TABLET PO SCH (09:41)
[2020-03-26] MEDS: carvediloL 3.125 MG TABLET PO SCH (09:41)
[2020-03-26] MEDS: Fluticasone Furoate-Vilanterol [Breo Ellipta] INH SCH (09:42)
[2020-03-26] MEDS: FUROSEMIDE 40 MG/4 ML VIAL IV SCH ×2 (09:42→16:43)
[2020-03-26] MEDS ORDERED: amLODIPine 2.5 MG TABLET PO SCH (14:22)
[2020-03-26] MEDS: hydrALAZINE 25 MG TABLET PO SCH ×2 (16:43→20:37)
[2020-03-26] MEDS: INSULIN GLARGINE 100 UNIT/ML SUBCUT SCH (20:37)
[2020-03-26] MEDS: ATORVASTATIN 10 MG TABLET PO SCH (20:37)
[2020-03-27 03:04] LABS: Basophils % 0.4 % (0.0-0.8); Eosinophils # 0.3 10*3/uL (0.0-0.87); Eosinophils % 3.7 % (0.00-10.9); Hematocrit 29.5 VOL% (35.7-47.0); Hemoglobin 9.1 GM/DL (12.0-16.0); Immature Granulocytes % 0.4 %; Immature Granulocytes Absolute 0.03 #; Lymphocytes # 2.5 10*3/uL (1.4-4.0); Lymphocytes % 32.8 % (21.3-54.2); Mean Corpuscular HGB Conc 30.8 GM/DL (32-36); Mean Corpuscular Volume 93.1 FL (87-102); Mean Platelet Volume 11.7 FL (9.6-12.0); Monocytes % 11.1 % (1.7-12.7); Neutrophils % 51.6 % (38.7-73.9); Platelet Count 207 T/CUMM (130-400); Red Blood Count 3.17 MC/CUMM (3.8-5.5); Red Cell Distribution Width 14.6 % (9.3-17.3); White Blood Count 7.6 T/CUMM (4-12)
[2020-03-27 03:20] LABS: Calcium 9.1 MG/DL (8.5-10.1); Osmolality,Calculated 287.7 MOS/KG (273-304)
[2020-03-27 08:17] VITALS: BP 163/79
[2020-03-27] MEDS: INSULIN LISPRO 100 UNIT/ML SUBCUT SCH (08:40)
[2020-03-27] MEDS: sitaGLIPtin 25 MG TABLET PO SCH (08:40)
[2020-03-27] MEDS: DOXAZOSIN 4 MG TABLET PO SCH (08:41)
[2020-03-27] MEDS: hydrALAZINE 25 MG TABLET PO SCH (08:41)
[2020-03-27] MEDS: CHOLECALCIFEROL 1,000 UNIT TABLET PO SCH (08:41)
[2020-03-27] MEDS: MONTELUKAST 10 MG TABLET PO SCH (08:41)
[2020-03-27] MEDS: ASCORBIC ACID 500 MG TABLET PO SCH (08:41)
[2020-03-27] MEDS: PANTOPRAZOLE 40 MG TABLET PO SCH (08:41)
[2020-03-27] MEDS: APIXABAN 5 MG TABLET PO SCH (08:41)
[2020-03-27] MEDS: FERROUS SULFATE 325 MG TABLET PO SCH (08:41)
[2020-03-27] MEDS: SODIUM BICARBONATE 650 MG TABLET PO SCH (08:41)
[2020-03-27] MEDS: Fluticasone Furoate-Vilanterol [Breo Ellipta] INH SCH (08:42)
[2020-03-27] MEDS: FUROSEMIDE 40 MG/4 ML VIAL IV SCH (08:42)
[2020-03-27] MEDS: OLMESARTAN 20 MG TABLET PO SCH (08:42)
== END 2020-03-27 12:24 | disposition home or self-care (01) | DRG 291 ==
LOC: SUATTDRO 02:42 → N.TELES 02:42
PROVIDERS: ADMIT Internal Medicine; ATTEND Family Medicine

== ENCOUNTER 2020-09-23 21:03 | Inpatient (IN) ==
[2020-09-23] MEDS ORDERED: ACETAMINOPHEN 500 MG TABLET PO STA (23:17)
[2020-09-23 23:37] LABS: Hematocrit 30.4 VOL% (35.7-47.0); Hemoglobin 9.4 GM/DL (12.0-16.0); Immature Granulocytes % 0.3 %; Immature Granulocytes Absolute 0.02 #; Lymphocytes # 1.1 10*3/uL (1.4-4.0); Lymphocytes % 17.9 % (21.3-54.2); Mean Corpuscular HGB Conc 30.9 GM/DL (32-36); Mean Corpuscular Volume 90.2 FL (87-102); Mean Platelet Volume 11.7 FL (9.6-12.0); Monocytes % 8.9 % (1.7-12.7); Neutrophils % 72.9 % (38.7-73.9); Platelet Count 158 T/CUMM (130-400); Red Blood Count 3.37 MC/CUMM (3.8-5.5); Red Cell Distribution Width 14.1 % (9.3-17.3); White Blood Count 5.9 T/CUMM (4-12)
[2020-09-23 23:45] LABS: Albumin 3.2 G/DL (3.4-5.0); Bilirubin,Total 0.6 MG/DL (0.2-1.0); Osmolality,Calculated 286.1 MOS/KG (273-304)
[2020-09-24 00:08] LABS: Ferritin 195.9 ng/ml (8-252)
[2020-09-24] MEDS ORDERED: AZITHROMYCIN INJ 500 MG in SODIUM CHLORIDE 0.9% 250 ML IV STA (00:59)
[2020-09-24] MEDS ORDERED: hydrALAZINE 20 MG/1 ML VIAL IV PRN (02:47)
[2020-09-24] MEDS ORDERED: DEXAMETHASONE 10 MG/1 ML VIAL IV ONE (02:47)
[2020-09-24] MEDS ORDERED: ONDANSETRON 4 MG/2 ML VIAL IV PRN (02:47)
[2020-09-24] MEDS ORDERED: diphenhydrAMINE CAP 25 MG CAPSULE PO PRN (02:47)
[2020-09-24] MEDS ORDERED: DEXTROSE 50% 25 GM/50 ML VIAL IV PRN (02:47)
[2020-09-24] MEDS ORDERED: GLUCAGON 1 MG VIAL IM PRN (02:47)
[2020-09-24] MEDS ORDERED: NICOTINE 21 MG/24 HR PATCH TRANSDERM PRN (02:47)
[2020-09-24] MEDS ORDERED: hydrALAZINE 20 MG/1 ML VIAL IV STA (03:14)
[2020-09-24] MEDS: cefTRIAXone 1,000 MG in SYRINGE 1 EACH IV SCH (04:15)
[2020-09-24 06:40] LABS: Bacteria,Urine Occasional /HPF (Few); Bilirubin,Urine Negative (Negative); Blood, Urine Negative (Negative); Glucose,Urine (UA) Negative (Negative); Ketones,Urine Negative (Negative); Mucus,Urine Occasional /LPF (Occasional); Nitrite,Urine Negative (Negative); Protein,Urine 100 MG/DL; RBC,Urine 2 /HPF (0-4); Squamous Epithelial Cell,Urine Occasional /HPF (0-10); Urine Appearance CLEAR (Clear); Urine Color Yellow (Yellow); Urine Urobilinogen < 2.0 EU/DL (0.2-1.0)
[2020-09-24] MEDS ORDERED: NON-FORMULARY MEDICATION (Albuterol Sulfate [Ventolin Hfa] 90 MCG/PUFF HFA aerosol inhaler INH PRN (07:51)
[2020-09-24] MEDS ORDERED: SODIUM CHLORIDE 0.9% 1,000 ML IV SCH (08:00)
[2020-09-24] MEDS ORDERED: FAMOTIDINE 20 MG TABLET PO SCH (09:00)
[2020-09-24] MEDS ORDERED: ASCORBIC ACID 500 MG TABLET PO SCH ×2 (09:00)
[2020-09-24] MEDS: ZINC SULFATE 220 MG CAPSULE PO SCH (09:09)
[2020-09-24] MEDS: METOPROLOL SUCCINATE XL 25 MG TABLET PO SCH (09:09)
[2020-09-24] MEDS: ISOSORBIDE MONONITRATE 30 MG TABLET PO SCH (09:09)
[2020-09-24] MEDS: CETIRIZINE 10 MG TABLET PO SCH (09:09)
[2020-09-24] MEDS: DOXAZOSIN 4 MG TABLET PO SCH (09:09)
[2020-09-24] MEDS: APIXABAN 2.5 MG TABLET PO SCH ×2 (09:09→21:36)
[2020-09-24] MEDS: FAMOTIDINE 20 MG TABLET PO SCH (09:09)
[2020-09-24] MEDS: CHOLECALCIFEROL 1,000 UNIT TABLET PO SCH (09:09)
[2020-09-24] MEDS: MONTELUKAST 10 MG TABLET PO SCH (09:09)
[2020-09-24] MEDS: ASCORBIC ACID 500 MG TABLET PO SCH ×2 (09:10→21:36)
[2020-09-24] MEDS: FERROUS SULFATE 325 MG TABLET PO SCH (09:10)
[2020-09-24] MEDS: INSULIN REGULAR 100 UNIT/ML SUBCUT SCH ×4 (09:50→21:35)
[2020-09-24] MEDS ORDERED: DEXAMETHASONE 4 MG/1 ML VIAL IV SCH (15:00)
[2020-09-24] MEDS: INSULIN GLARGINE 100 UNIT/ML SUBCUT SCH (21:35)
[2020-09-24] MEDS: ATORVASTATIN 10 MG TABLET PO SCH (21:38)
[2020-09-25] MEDS: cefTRIAXone 1,000 MG in SYRINGE 1 EACH IV SCH (03:49)
[2020-09-25] MEDS: AZITHROMYCIN INJ 500 MG in SODIUM CHLORIDE 0.9% 250 ML IV SCH (03:57)
[2020-09-25] MEDS: INSULIN REGULAR 100 UNIT/ML SUBCUT SCH ×4 (08:52→22:16)
[2020-09-25] MEDS: MONTELUKAST 10 MG TABLET PO SCH (08:53)
[2020-09-25] MEDS: APIXABAN 2.5 MG TABLET PO SCH ×2 (08:53→22:15)
[2020-09-25] MEDS: FERROUS SULFATE 325 MG TABLET PO SCH (08:53)
[2020-09-25] MEDS: DOXAZOSIN 4 MG TABLET PO SCH (08:53)
[2020-09-25] MEDS: CHOLECALCIFEROL 1,000 UNIT TABLET PO SCH (08:53)
[2020-09-25] MEDS: FAMOTIDINE 20 MG TABLET PO SCH (08:53)
[2020-09-25] MEDS: METOPROLOL SUCCINATE XL 25 MG TABLET PO SCH (08:54)
[2020-09-25] MEDS: CETIRIZINE 10 MG TABLET PO SCH (08:54)
[2020-09-25] MEDS: ASCORBIC ACID 500 MG TABLET PO SCH ×2 (08:54→22:15)
[2020-09-25] MEDS: ISOSORBIDE MONONITRATE 30 MG TABLET PO SCH (08:54)
[2020-09-25] MEDS: DEXAMETHASONE 4 MG/1 ML VIAL IV SCH (08:58)
[2020-09-25 09:13] LABS: Albumin 2.1 G/DL (3.4-5.0); Bilirubin,Total 0.4 MG/DL (0.2-1.0); Calcium 8.1 MG/DL (8.5-10.1); Ferritin 272.1 ng/ml (8-252); Osmolality,Calculated 286.7 MOS/KG (273-304)
[2020-09-25] MEDS ORDERED: REMDESIVIR 200 MG in SODIUM CHLORIDE 0.9% 210 ML IV ONE (12:00)
[2020-09-25] MEDS ORDERED: SODIUM CHLORIDE 0.9% 1,000 ML IV PRN (14:13)
[2020-09-25] MEDS: ATORVASTATIN 10 MG TABLET PO SCH (22:15)
[2020-09-25] MEDS: INSULIN GLARGINE 100 UNIT/ML SUBCUT SCH (22:35)
[2020-09-26] MEDS: AZITHROMYCIN INJ 500 MG in SODIUM CHLORIDE 0.9% 250 ML IV SCH (02:52)
[2020-09-26] MEDS: cefTRIAXone 1,000 MG in SYRINGE 1 EACH IV SCH (03:57)
[2020-09-26 06:47] LABS: Albumin 2.2 G/DL (3.4-5.0); Bilirubin,Total 0.6 MG/DL (0.2-1.0); Calcium 8.2 MG/DL (8.5-10.1); Ferritin 219.2 ng/ml (8-252); Osmolality,Calculated 288.4 MOS/KG (273-304)
[2020-09-26] MEDS: INSULIN REGULAR 100 UNIT/ML SUBCUT SCH ×4 (08:24→20:06)
[2020-09-26] MEDS: REMDESIVIR 100 MG in SODIUM CHLORIDE 0.9% 100 ML IV SCH (09:36)
[2020-09-26] MEDS: DEXAMETHASONE 4 MG/1 ML VIAL IV SCH (09:36)
[2020-09-26] MEDS: ZINC SULFATE 220 MG CAPSULE PO SCH (09:36)
[2020-09-26] MEDS: ISOSORBIDE MONONITRATE 30 MG TABLET PO SCH (09:37)
[2020-09-26] MEDS: DOXAZOSIN 4 MG TABLET PO SCH (09:37)
[2020-09-26] MEDS: FAMOTIDINE 20 MG TABLET PO SCH (09:37)
[2020-09-26] MEDS: CHOLECALCIFEROL 1,000 UNIT TABLET PO SCH (09:37)
[2020-09-26] MEDS: APIXABAN 2.5 MG TABLET PO SCH ×2 (09:37→20:05)
[2020-09-26] MEDS: METOPROLOL SUCCINATE XL 25 MG TABLET PO SCH (09:37)
[2020-09-26] MEDS: FERROUS SULFATE 325 MG TABLET PO SCH (09:38)
[2020-09-26] MEDS: MONTELUKAST 10 MG TABLET PO SCH (09:38)
[2020-09-26] MEDS: ASCORBIC ACID 500 MG TABLET PO SCH ×2 (09:38→20:06)
[2020-09-26] MEDS: CETIRIZINE 10 MG TABLET PO SCH (09:38)
[2020-09-26] MEDS: INSULIN GLARGINE 100 UNIT/ML SUBCUT SCH (20:06)
[2020-09-26] MEDS: ACETAMINOPHEN 325 MG TABLET PO PRN (20:06)
[2020-09-26] MEDS: ATORVASTATIN 10 MG TABLET PO SCH (20:06)
[2020-09-27] MEDS: AZITHROMYCIN INJ 500 MG in SODIUM CHLORIDE 0.9% 250 ML IV SCH (03:05)
[2020-09-27] MEDS: cefTRIAXone 1,000 MG in SYRINGE 1 EACH IV SCH (04:08)
[2020-09-27 06:23] LABS: Hematocrit 29.4 VOL% (35.7-47.0); Immature Granulocytes Absolute 0.09 #; Lymphocytes # 1.6 10*3/uL (1.4-4.0); Lymphocytes % 17.5 % (21.3-54.2); Mean Corpuscular HGB Conc 30.6 GM/DL (32-36); Mean Corpuscular Volume 90.7 FL (87-102); Mean Platelet Volume 12.1 FL (9.6-12.0); Monocytes % 7.5 % (1.7-12.7); Platelet Count 208 T/CUMM (130-400); Red Blood Count 3.24 MC/CUMM (3.8-5.5); White Blood Count 9.1 T/CUMM (4-12)
[2020-09-27 06:53] LABS: Alanine Aminotransferase 18 U/L (13-56); Albumin 2.1 G/DL (3.4-5.0); Alkaline Phosphatase 76 U/L (45-117); Aspartate Amino Transferase 22 U/L (0-37); Bilirubin,Total < 0.39 MG/DL (0.2-1.0); Blood Urea Nitrogen 40 MG/DL (7-18); Calcium 8.4 MG/DL (8.5-10.1); Estimated Glom Filtration Rate 45 ML/MIN; Ferritin 249.5 ng/ml (8-252); Glucose 137 MG/DL (74-106); Osmolality,Calculated 292.3 MOS/KG (273-304); Total Protein 6.9 G/DL (6.4-8.3)
[2020-09-27 07:08] LABS: Band Neutrophils 5 % (0-10); Lymphocytes 12 % (20-55); Platelet Estimate Normal; Segmented Neutrophils 75 % (50-85); Total Cells Counted 100
[2020-09-27 07:09] LABS: Anisocytosis 1+; Macrocytosis 1+
[2020-09-27] MEDS: DEXAMETHASONE 4 MG/1 ML VIAL IV SCH (08:16)
[2020-09-27] MEDS: ASCORBIC ACID 500 MG TABLET PO SCH ×2 (08:18→20:00)
[2020-09-27] MEDS: DOXAZOSIN 4 MG TABLET PO SCH (08:18)
[2020-09-27] MEDS: CHOLECALCIFEROL 1,000 UNIT TABLET PO SCH (08:18)
[2020-09-27] MEDS: FERROUS SULFATE 325 MG TABLET PO SCH (08:18)
[2020-09-27] MEDS: guaiFENesin/DM ER 600-30 MG TABLET PO PRN (08:18)
[2020-09-27] MEDS: CETIRIZINE 10 MG TABLET PO SCH (08:18)
[2020-09-27] MEDS: MONTELUKAST 10 MG TABLET PO SCH (08:19)
[2020-09-27] MEDS: ISOSORBIDE MONONITRATE 30 MG TABLET PO SCH (08:19)
[2020-09-27] MEDS: FAMOTIDINE 20 MG TABLET PO SCH (08:19)
[2020-09-27] MEDS: METOPROLOL SUCCINATE XL 25 MG TABLET PO SCH (08:19)
[2020-09-27] MEDS: APIXABAN 2.5 MG TABLET PO SCH ×2 (08:19→20:00)
[2020-09-27] MEDS: REMDESIVIR 100 MG in SODIUM CHLORIDE 0.9% 100 ML IV SCH (09:09)
[2020-09-27] MEDS: INSULIN REGULAR 100 UNIT/ML SUBCUT SCH ×4 (11:10→20:00)
[2020-09-27] MEDS: ACETAMINOPHEN 325 MG TABLET PO PRN (12:38)
[2020-09-27] MEDS: ALBUTEROL INHALER 18 GM INH SCH ×3 (14:18→20:28)
[2020-09-27] MEDS: INSULIN GLARGINE 100 UNIT/ML SUBCUT SCH (20:00)
[2020-09-27] MEDS: ATORVASTATIN 10 MG TABLET PO SCH (20:00)
[2020-09-28] MEDS: ALBUTEROL INHALER 18 GM INH SCH ×7 (01:19→22:55)
[2020-09-28] MEDS: cefTRIAXone 1,000 MG in SYRINGE 1 EACH IV SCH (03:07)
[2020-09-28] MEDS: AZITHROMYCIN INJ 500 MG in SODIUM CHLORIDE 0.9% 250 ML IV SCH (03:08)
[2020-09-28 05:13] LABS: Basophils % 0.1 % (0.0-0.8); Hematocrit 30.1 VOL% (35.7-47.0); Hemoglobin 9.1 GM/DL (12.0-16.0); Immature Granulocytes % 1.8 %; Immature Granulocytes Absolute 0.16 #; Lymphocytes # 1.3 10*3/uL (1.4-4.0); Lymphocytes % 14.9 % (21.3-54.2); Mean Corpuscular HGB Conc 30.2 GM/DL (32-36); Mean Corpuscular Volume 91.5 FL (87-102); Monocytes % 7.4 % (1.7-12.7); Neutrophils % 75.8 % (38.7-73.9); Platelet Count 232 T/CUMM (130-400); Red Blood Count 3.29 MC/CUMM (3.8-5.5); White Blood Count 8.8 T/CUMM (4-12)
[2020-09-28 06:04] LABS: Albumin 2.2 G/DL (3.4-5.0); Bilirubin,Total 0.4 MG/DL (0.2-1.0); Ferritin 243.6 ng/ml (8-252); Osmolality,Calculated 292.5 MOS/KG (273-304); Total Protein 6.8 G/DL (6.4-8.3)
[2020-09-28 06:24] LABS: Lymphocytes 12 % (20-55); Platelet Estimate Normal; Segmented Neutrophils 83 % (50-85); Total Cells Counted 100
[2020-09-28] MEDS: MONTELUKAST 10 MG TABLET PO SCH (09:34)
[2020-09-28] MEDS: ISOSORBIDE MONONITRATE 30 MG TABLET PO SCH (09:34)
[2020-09-28] MEDS: FERROUS SULFATE 325 MG TABLET PO SCH (09:34)
[2020-09-28] MEDS: ASCORBIC ACID 500 MG TABLET PO SCH ×2 (09:34→21:29)
[2020-09-28] MEDS: DOXAZOSIN 4 MG TABLET PO SCH (09:34)
[2020-09-28] MEDS: CHOLECALCIFEROL 1,000 UNIT TABLET PO SCH (09:34)
[2020-09-28] MEDS: FAMOTIDINE 20 MG TABLET PO SCH (09:35)
[2020-09-28] MEDS: INSULIN REGULAR 100 UNIT/ML SUBCUT SCH ×4 (09:35→21:38)
[2020-09-28] MEDS: METOPROLOL SUCCINATE XL 25 MG TABLET PO SCH (09:35)
[2020-09-28] MEDS: APIXABAN 2.5 MG TABLET PO SCH ×2 (09:35→21:29)
[2020-09-28] MEDS: DEXAMETHASONE 4 MG/1 ML VIAL IV SCH (09:37)
[2020-09-28] MEDS: ZINC SULFATE 220 MG CAPSULE PO SCH (10:51)
[2020-09-28] MEDS: CETIRIZINE 10 MG TABLET PO SCH (10:51)
[2020-09-28] MEDS: REMDESIVIR 100 MG in SODIUM CHLORIDE 0.9% 100 ML IV SCH (10:52)
[2020-09-28] MEDS: ATORVASTATIN 10 MG TABLET PO SCH (21:29)
[2020-09-28] MEDS: guaiFENesin/DM ER 600-30 MG TABLET PO PRN (21:29)
[2020-09-28] MEDS: INSULIN GLARGINE 100 UNIT/ML SUBCUT SCH (21:38)
[2020-09-29] MEDS: ALBUTEROL INHALER 18 GM INH SCH ×6 (02:02→23:12)
[2020-09-29] MEDS: cefTRIAXone 1,000 MG in SYRINGE 1 EACH IV SCH (03:49)
[2020-09-29] MEDS: AZITHROMYCIN INJ 500 MG in SODIUM CHLORIDE 0.9% 250 ML IV SCH (03:52)
[2020-09-29 06:01] LABS: Basophils % 0.2 % (0.0-0.8); Hematocrit 30.3 VOL% (35.7-47.0); Hemoglobin 9.1 GM/DL (12.0-16.0); Immature Granulocytes % 1.5 %; Immature Granulocytes Absolute 0.15 #; Lymphocytes # 1.3 10*3/uL (1.4-4.0); Lymphocytes % 12.7 % (21.3-54.2); Mean Corpuscular Volume 92.7 FL (87-102); Mean Platelet Volume 11.7 FL (9.6-12.0); Monocytes % 9.9 % (1.7-12.7); Neutrophils % 75.7 % (38.7-73.9); Platelet Count 269 T/CUMM (130-400); Red Blood Count 3.27 MC/CUMM (3.8-5.5); Red Cell Distribution Width 13.8 % (9.3-17.3)
[2020-09-29 06:33] LABS: Albumin 2.2 G/DL (3.4-5.0); Bilirubin,Total 0.4 MG/DL (0.2-1.0); Calcium 8.2 MG/DL (8.5-10.1); Ferritin 213.3 ng/ml (8-252); Total Protein 6.7 G/DL (6.4-8.3)
[2020-09-29 08:00] LABS: Lymphocytes 10 % (20-55); Segmented Neutrophils 79 % (50-85); Total Cells Counted 100
[2020-09-29] MEDS: INSULIN REGULAR 100 UNIT/ML SUBCUT SCH ×4 (08:00→20:30)
[2020-09-29 08:01] LABS: Hypochromasia Slight; Microcytosis 1+; Platelet Estimate Normal
[2020-09-29 08:02] LABS: Ovalocytes Slight
[2020-09-29] MEDS: ASCORBIC ACID 500 MG TABLET PO SCH ×2 (08:30→20:29)
[2020-09-29] MEDS: DEXAMETHASONE 4 MG/1 ML VIAL IV SCH (08:30)
[2020-09-29] MEDS: ISOSORBIDE MONONITRATE 30 MG TABLET PO SCH (08:31)
[2020-09-29] MEDS: CETIRIZINE 10 MG TABLET PO SCH (08:31)
[2020-09-29] MEDS: CHOLECALCIFEROL 1,000 UNIT TABLET PO SCH (08:31)
[2020-09-29] MEDS: MONTELUKAST 10 MG TABLET PO SCH (08:31)
[2020-09-29] MEDS: FERROUS SULFATE 325 MG TABLET PO SCH (08:31)
[2020-09-29] MEDS: METOPROLOL SUCCINATE XL 25 MG TABLET PO SCH (08:31)
[2020-09-29] MEDS: DOXAZOSIN 4 MG TABLET PO SCH (08:31)
[2020-09-29] MEDS: FAMOTIDINE 20 MG TABLET PO SCH (08:31)
[2020-09-29] MEDS: APIXABAN 2.5 MG TABLET PO SCH ×2 (08:32→20:29)
[2020-09-29] MEDS: REMDESIVIR 100 MG in SODIUM CHLORIDE 0.9% 100 ML IV SCH (10:30)
[2020-09-29] MEDS: ATORVASTATIN 10 MG TABLET PO SCH (20:29)
[2020-09-29] MEDS: INSULIN GLARGINE 100 UNIT/ML SUBCUT SCH (20:30)
[2020-09-29] MEDS: guaiFENesin/DM ER 600-30 MG TABLET PO PRN (20:30)
[2020-09-30] MEDS: cefTRIAXone 1,000 MG in SYRINGE 1 EACH IV SCH (03:20)
[2020-09-30] MEDS: ALBUTEROL INHALER 18 GM INH SCH ×6 (03:33→22:45)
[2020-09-30] MEDS: AZITHROMYCIN INJ 500 MG in SODIUM CHLORIDE 0.9% 250 ML IV SCH (03:34)
[2020-09-30] MEDS: METOPROLOL SUCCINATE XL 25 MG TABLET PO SCH (09:22)
[2020-09-30] MEDS: DOXAZOSIN 4 MG TABLET PO SCH (09:22)
[2020-09-30] MEDS: FERROUS SULFATE 325 MG TABLET PO SCH (09:22)
[2020-09-30] MEDS: ASCORBIC ACID 500 MG TABLET PO SCH ×2 (09:22→21:15)
[2020-09-30] MEDS: FAMOTIDINE 20 MG TABLET PO SCH (09:22)
[2020-09-30] MEDS: DEXAMETHASONE 4 MG/1 ML VIAL IV SCH (09:22)
[2020-09-30] MEDS: CETIRIZINE 10 MG TABLET PO SCH (09:22)
[2020-09-30] MEDS: ZINC SULFATE 220 MG CAPSULE PO SCH (09:22)
[2020-09-30] MEDS: ISOSORBIDE MONONITRATE 30 MG TABLET PO SCH (09:22)
[2020-09-30] MEDS: MONTELUKAST 10 MG TABLET PO SCH (09:23)
[2020-09-30] MEDS: CHOLECALCIFEROL 1,000 UNIT TABLET PO SCH (09:23)
[2020-09-30] MEDS: INSULIN REGULAR 100 UNIT/ML SUBCUT SCH ×4 (09:23→22:45)
[2020-09-30] MEDS: APIXABAN 2.5 MG TABLET PO SCH ×2 (09:23→21:15)
[2020-09-30] MEDS: OLMESARTAN 20 MG TABLET PO SCH (10:20)
[2020-09-30] MEDS: ATORVASTATIN 10 MG TABLET PO SCH (21:15)
[2020-09-30] MEDS: INSULIN GLARGINE 100 UNIT/ML SUBCUT SCH (22:45)
[2020-10-01] MEDS: ALBUTEROL INHALER 18 GM INH SCH ×6 (03:20→23:30)
[2020-10-01] MEDS: INSULIN REGULAR 100 UNIT/ML SUBCUT SCH ×4 (07:30→20:55)
[2020-10-01] MEDS: DOXAZOSIN 4 MG TABLET PO SCH (10:36)
[2020-10-01] MEDS: METOPROLOL SUCCINATE XL 25 MG TABLET PO SCH (10:37)
[2020-10-01] MEDS: ASCORBIC ACID 500 MG TABLET PO SCH ×2 (10:37→20:55)
[2020-10-01] MEDS: FERROUS SULFATE 325 MG TABLET PO SCH (10:37)
[2020-10-01] MEDS: MONTELUKAST 10 MG TABLET PO SCH (10:37)
[2020-10-01] MEDS: CETIRIZINE 10 MG TABLET PO SCH (10:37)
[2020-10-01] MEDS: ISOSORBIDE MONONITRATE 30 MG TABLET PO SCH (10:37)
[2020-10-01] MEDS: APIXABAN 2.5 MG TABLET PO SCH ×2 (10:38→20:55)
[2020-10-01] MEDS: DEXAMETHASONE 4 MG/1 ML VIAL IV SCH (10:38)
[2020-10-01] MEDS: CHOLECALCIFEROL 1,000 UNIT TABLET PO SCH (10:38)
[2020-10-01] MEDS: FAMOTIDINE 20 MG TABLET PO SCH (10:38)
[2020-10-01] MEDS: OLMESARTAN 20 MG TABLET PO SCH (10:38)
[2020-10-01] MEDS: ATORVASTATIN 10 MG TABLET PO SCH (20:55)
[2020-10-01] MEDS: INSULIN GLARGINE 100 UNIT/ML SUBCUT SCH (20:55)
[2020-10-02] MEDS: ALBUTEROL INHALER 18 GM INH SCH ×6 (03:25→23:44)
[2020-10-02 05:25] LABS: Basophils % 0.1 % (0.0-0.8); Eosinophils % 0.2 % (0.00-10.9); Hematocrit 28.6 VOL% (35.7-47.0); Hemoglobin 8.8 GM/DL (12.0-16.0); Immature Granulocytes % 1.8 %; Immature Granulocytes Absolute 0.15 #; Lymphocytes % 12.2 % (21.3-54.2); Mean Corpuscular HGB Conc 30.8 GM/DL (32-36); Mean Corpuscular Volume 91.4 FL (87-102); Monocytes % 10.6 % (1.7-12.7); Neutrophils % 75.1 % (38.7-73.9); Platelet Count 331 T/CUMM (130-400); Red Blood Count 3.13 MC/CUMM (3.8-5.5); Red Cell Distribution Width 13.9 % (9.3-17.3); White Blood Count 8.3 T/CUMM (4-12)
[2020-10-02 05:41] LABS: Calcium 8.7 MG/DL (8.5-10.1); Osmolality,Calculated 293.1 MOS/KG (273-304)
[2020-10-02] MEDS: INSULIN REGULAR 100 UNIT/ML SUBCUT SCH ×4 (07:35→20:47)
[2020-10-02] MEDS ORDERED: SODIUM POLYSTYRENE SULFATE 15 GM/60 ML BOTTLE PO ONE (08:27)
[2020-10-02] MEDS: DEXAMETHASONE 4 MG/1 ML VIAL IV SCH ×2 (09:52→13:48)
[2020-10-02] MEDS: CHOLECALCIFEROL 1,000 UNIT TABLET PO SCH (09:53)
[2020-10-02] MEDS: OLMESARTAN 20 MG TABLET PO SCH (09:53)
[2020-10-02] MEDS: CETIRIZINE 10 MG TABLET PO SCH (09:54)
[2020-10-02] MEDS: ISOSORBIDE MONONITRATE 30 MG TABLET PO SCH (09:54)
[2020-10-02] MEDS: ASCORBIC ACID 500 MG TABLET PO SCH ×2 (09:54→20:49)
[2020-10-02] MEDS: METOPROLOL SUCCINATE XL 25 MG TABLET PO SCH (09:54)
[2020-10-02] MEDS: FERROUS SULFATE 325 MG TABLET PO SCH (09:54)
[2020-10-02] MEDS: DOXAZOSIN 4 MG TABLET PO SCH (09:54)
[2020-10-02] MEDS: ZINC SULFATE 220 MG CAPSULE PO SCH (09:54)
[2020-10-02] MEDS: MONTELUKAST 10 MG TABLET PO SCH (09:54)
[2020-10-02] MEDS: APIXABAN 2.5 MG TABLET PO SCH ×2 (09:54→20:44)
[2020-10-02] MEDS: FAMOTIDINE 20 MG TABLET PO SCH (09:54)
[2020-10-02] MEDS: INSULIN GLARGINE 100 UNIT/ML SUBCUT SCH (20:48)
[2020-10-02] MEDS: ATORVASTATIN 10 MG TABLET PO SCH (20:49)
[2020-10-03] MEDS: ALBUTEROL INHALER 18 GM INH SCH ×5 (03:41→20:12)
[2020-10-03 05:06] LABS: Basophils % 0.1 % (0.0-0.8); Eosinophils % 0.1 % (0.00-10.9); Hematocrit 29.2 VOL% (35.7-47.0); Hemoglobin 8.8 GM/DL (12.0-16.0); Immature Granulocytes % 1.1 %; Lymphocytes # 0.9 10*3/uL (1.4-4.0); Mean Corpuscular HGB Conc 30.1 GM/DL (32-36); Mean Corpuscular Volume 91.8 FL (87-102); Mean Platelet Volume 11.2 FL (9.6-12.0); Monocytes % 6.6 % (1.7-12.7); Neutrophils % 82.1 % (38.7-73.9); Platelet Count 315 T/CUMM (130-400); Red Blood Count 3.18 MC/CUMM (3.8-5.5); Red Cell Distribution Width 13.9 % (9.3-17.3); White Blood Count 9.1 T/CUMM (4-12)
[2020-10-03 05:27] LABS: Calcium 8.2 MG/DL (8.5-10.1); Osmolality,Calculated 299.4 MOS/KG (273-304)
[2020-10-03] MEDS: guaiFENesin/DM ER 600-30 MG TABLET PO PRN (08:26)
[2020-10-03] MEDS: INSULIN REGULAR 100 UNIT/ML SUBCUT SCH ×4 (08:26→22:39)
[2020-10-03] MEDS: DOXAZOSIN 4 MG TABLET PO SCH (08:26)
[2020-10-03] MEDS: OLMESARTAN 20 MG TABLET PO SCH (08:26)
[2020-10-03] MEDS: DEXAMETHASONE 4 MG/1 ML VIAL IV SCH (08:26)
[2020-10-03] MEDS: APIXABAN 2.5 MG TABLET PO SCH ×2 (08:27→21:38)
[2020-10-03] MEDS: ISOSORBIDE MONONITRATE 30 MG TABLET PO SCH (08:27)
[2020-10-03] MEDS: CHOLECALCIFEROL 1,000 UNIT TABLET PO SCH (08:27)
[2020-10-03] MEDS: CETIRIZINE 10 MG TABLET PO SCH (08:27)
[2020-10-03] MEDS: FAMOTIDINE 20 MG TABLET PO SCH (08:27)
[2020-10-03] MEDS: FERROUS SULFATE 325 MG TABLET PO SCH (08:27)
[2020-10-03] MEDS: METOPROLOL SUCCINATE XL 25 MG TABLET PO SCH (08:27)
[2020-10-03] MEDS: ASCORBIC ACID 500 MG TABLET PO SCH ×2 (08:27→21:38)
[2020-10-03] MEDS: MONTELUKAST 10 MG TABLET PO SCH (08:27)
[2020-10-03] MEDS: ATORVASTATIN 10 MG TABLET PO SCH (21:38)
[2020-10-03] MEDS: INSULIN GLARGINE 100 UNIT/ML SUBCUT SCH (21:43)
[2020-10-04] MEDS: ALBUTEROL INHALER 18 GM INH SCH ×4 (00:04→12:02)
[2020-10-04 05:15] LABS: Basophils % 0.1 % (0.0-0.8); Eosinophils % 0.4 % (0.00-10.9); Hematocrit 27.6 VOL% (35.7-47.0); Hemoglobin 8.4 GM/DL (12.0-16.0); Immature Granulocytes % 1.3 %; Immature Granulocytes Absolute 0.11 #; Lymphocytes # 1.1 10*3/uL (1.4-4.0); Mean Corpuscular HGB Conc 30.4 GM/DL (32-36); Mean Corpuscular Volume 91.1 FL (87-102); Monocytes % 9.8 % (1.7-12.7); Neutrophils % 75.4 % (38.7-73.9); Platelet Count 303 T/CUMM (130-400); Red Blood Count 3.03 MC/CUMM (3.8-5.5); Red Cell Distribution Width 13.8 % (9.3-17.3); White Blood Count 8.4 T/CUMM (4-12)
[2020-10-04 05:40] LABS: Calcium 8.3 MG/DL (8.5-10.1); Osmolality,Calculated 294.3 MOS/KG (273-304)
[2020-10-04] MEDS: ZINC SULFATE 220 MG CAPSULE PO SCH (08:26)
[2020-10-04] MEDS: MONTELUKAST 10 MG TABLET PO SCH (08:26)
[2020-10-04] MEDS: CHOLECALCIFEROL 1,000 UNIT TABLET PO SCH (08:26)
[2020-10-04] MEDS: METOPROLOL SUCCINATE XL 25 MG TABLET PO SCH ×2 (08:26→09:09)
[2020-10-04] MEDS: FAMOTIDINE 20 MG TABLET PO SCH (08:26)
[2020-10-04] MEDS: ISOSORBIDE MONONITRATE 30 MG TABLET PO SCH (08:26)
[2020-10-04] MEDS: DEXAMETHASONE 4 MG/1 ML VIAL IV SCH (08:26)
[2020-10-04] MEDS: OLMESARTAN 20 MG TABLET PO SCH (08:26)
[2020-10-04] MEDS: DOXAZOSIN 4 MG TABLET PO SCH (08:27)
[2020-10-04] MEDS: APIXABAN 2.5 MG TABLET PO SCH (08:27)
[2020-10-04] MEDS: CETIRIZINE 10 MG TABLET PO SCH (08:27)
[2020-10-04] MEDS: FERROUS SULFATE 325 MG TABLET PO SCH (08:27)
[2020-10-04] MEDS: ASCORBIC ACID 500 MG TABLET PO SCH (08:30)
[2020-10-04] MEDS: INSULIN REGULAR 100 UNIT/ML SUBCUT SCH ×2 (09:11→12:02)
[2020-10-04 11:52] VITALS: BP 152/55
== END 2020-10-04 13:08 | disposition home health service (06) | DRG 177 ==
LOC: N.ED 21:03 → SUATTDRO 09-24 02:47 → N.EDINP 09-24 02:47 → N.2E 09-24 05:21
PROVIDERS: ADMIT Family Medicine; ATTEND Internal Medicine